=== PATIENT | male | born 1990 | race Caucasian/White ===

== ENCOUNTER 2019-07-06 04:38 | Inpatient (IN) | payer SELFPAY ==
[~2019-07-06] VITALS: Ht 167.6 cm; Wt 68.5 kg
[2019-07-06 06:58] LABS: BASOPHILS % 0.3 % (0.0-2.0); EOSINOPHILS % 0.5 % (0.0-5.0); HEMATOCRIT. 44.8 % (42.0-52.0); HEMOGLOBIN. 15.4 g/dL (14.0-18.0); LYMPHOCYTES % 24.1 % (20.0-50.0); MEAN CORPUSCULAR VOLUME 93.4 fL (80.0-94.0); MEAN PLATELET VOLUME 9.8 fl (7.4-10.4); MONOCYTES % 5.9 % (2.0-8.0); NEUTROPHILS % 69.2 % (40.0-76.0); PLATELET 197 x1000/uL (130-400); RED CELL DISTRIBUTION WIDTH 12.8 % (11.6-14.6)
[2019-07-06 07:05] LABS: CHLORIDE 105 mEq/L (98-107)
[2019-07-06 07:09] LABS: ETHANOL BLOOD < 10 mg/dL
[2019-07-06 08:05] LABS: CLARITY URINE CLEAR (CLEAR); COLOR URINE YELLOW (YELLOW); KETONES URINE NEGATIVE (NEGATIVE); LEUKOCYTE ESTERASE URINE NEGATIVE (NEGATIVE); NITRITE URINE NEGATIVE (NEGATIVE); OCCULT BLOOD URINE NEGATIVE (NEGATIVE); PH URINE 5.5 (4.5-8.0); PROTEIN URINE NEGATIVE (NEGATIVE); SPECIFIC GRAVITY URINE 1.007 (1.005-1.030); UROBILINOGEN URINE 0.2 E.U./dL (0.2-1.0)
[2019-07-06 08:19] LABS: *AMPHETAMINES SCREEN URINE PRESUMTIVE POSITIVE (NEGATIVE); *BARBITURATES SCREEN URINE NEGATIVE (NEGATIVE); *BENZODIAZEPINES SCREEN URINE NEGATIVE (NEGATIVE)
[2019-07-06 08:20] LABS: *COCAINE SCREEN URINE NEGATIVE (NEGATIVE); CANNABINOID URINE SCREEN NEGATIVE (NEGATIVE); METHADONE URINE SCREEN NEGATIVE (NEGATIVE); OPIATES URINE SCREEN NEGATIVE (NEGATIVE); PHENCYCLIDINE URINE SCREEN NEGATIVE (NEGATIVE)
[2019-07-06] MEDS ORDERED: SODIUM CHLORIDE 0.9% 1,000 ML IV ONE (11:18)
[2019-07-06] MEDS ORDERED: LORAZEPAM 2MG/ML CPJ IM STA (11:52)
[2019-07-06] MEDS ORDERED: DIPHENHYDRAMINE 50MG/ML VIAL IM STA (11:52)
[2019-07-06] MEDS ORDERED: OLANZAPINE 10 MG/VIAL IM ONE (12:00)
[2019-07-06] MEDS ORDERED: ONDANSETRON HCL 4MG/2ML INJ IV PRN (14:45)
[2019-07-06] MEDS ORDERED: ACETAMINOPHEN 325MG TABLET PO PRN (14:45)
[2019-07-06] MEDS: DEXT 5%/0.45% NACL 1000ML 1,000 ML IV SCH ×2 (16:27→22:50)
[2019-07-06 18:30] VITALS: BP 134/81
[2019-07-06 22:30] VITALS: BP 134/81
[2019-07-07 04:00] VITALS: BP 123/67
[2019-07-07 07:20] LABS: BASOPHILS % 0.5 % (0.0-2.0); EOSINOPHILS % 1.1 % (0.0-5.0); HEMATOCRIT. 40.6 % (42.0-52.0); HEMOGLOBIN. 14.1 g/dL (14.0-18.0); MEAN CORPUSCULAR HEMOGLOBIN 32.5 pg (28.0-32.0); MEAN CORPUSCULAR VOLUME 93.4 fL (80.0-94.0); MEAN PLATELET VOLUME 10.3 fl (7.4-10.4); MONOCYTES % 6.6 % (2.0-8.0); NEUTROPHILS % 49.8 % (40.0-76.0); PLATELET 180 x1000/uL (130-400); RED BLOOD CELL COUNT 4.35 mill/uL (4.7-6.1); RED CELL DISTRIBUTION WIDTH 12.7 % (11.6-14.6)
[2019-07-07 07:54] LABS: CHLORIDE 106 mEq/L (98-107)
[2019-07-07 08:00] VITALS: BP 127/67
[2019-07-07] MEDS: DEXT 5%/0.45% NACL 1000ML 1,000 ML IV SCH (10:29)
[2019-07-07] MEDS ORDERED: LORAZEPAM 2MG/ML CPJ IM NR (13:00)
[2019-07-07] MEDS: HALOPERIDOL LACTATE 5MG/ML VIAL IM PRN (13:18)
[2019-07-07] MEDS ORDERED: LORAZEPAM 2MG/ML CPJ IM PRN (14:15)
[2019-07-07 20:00] VITALS: BP 98/71
[2019-07-07] MEDS: QUETIAPINE FUMARATE 25MG TABLET PO SCH (21:00)
[2019-07-08] MEDS: QUETIAPINE FUMARATE 25MG TABLET PO SCH (09:00)
[2019-07-08] MEDS: HALOPERIDOL LACTATE 5MG/ML VIAL IM PRN (15:00)
== END 2019-07-08 18:40 | disposition left against medical advice (07) | DRG 52 ==
LOC: ER 04:38 → 5WST 13:07 → ENRESERV 15:50 → CANRESERV 15:50 → ENRESERV 17:52
PROVIDERS: ADMIT Internal Medicine; ATTEND Internal Medicine
DX: G92 Toxic encephalopathy (principal); F15.90 Other stimulant use, unspecified, uncomplicated; F29 Unspecified psychosis not due to a substance or known physiological condition; Z53.21 Procedure and treatment not carried out due to patient leaving prior to being seen by health care provider; Z71.51 Drug abuse counseling and surveillance of drug abuser
CPT/HCPCS: 36415; 80048; 80305; 80320; 81003; 93970; 99285; J1200; J1630; J2060; J3490; J7030; G0480